=== PATIENT | male | born 1960 | race Caucasian/White ===

== ENCOUNTER 2022-07-19 19:21 | Emergency (ER) | payer OTHER, SELFPAY ==
[2022-07-19 19:30] VITALS: BP 162/97; PULSE 104; RESP 16; TEMP 36.6; O2SAT 98; BMI 26.6
[2022-07-19 19:47] VITALS: BP 132/83; PULSE 97; RESP 16; O2SAT 96
[2022-07-19 19:57] LABS: Basophils # 0.1 10^3/uL (0.0-0.1); Basophils % 0.4 %; Eosinophils # 0.1 10^3/uL (0.0-0.8); Eosinophils % 0.7 %; Hematocrit 47.5 % (42.0-52.0); Hemoglobin 15.9 g/dL (11.7-16.6); Lymphocytes # 1.4 10^3/uL (0.8-4.8); Lymphocytes % 8.1 %; Mean Corpuscular HGB Conc 33.5 g/dL (30.0-36.0); Mean Corpuscular Hemoglobin 31.2 pg (28.0-34.0); Mean Corpuscular Volume 93.1 fl (80-94); Mean Platelet Volume 9.3 fL (7.4-10.4); Monocytes # 1.8 10^3/uL (0.2-0.9); Monocytes % 10.4 %; Neutrophils # 13.99 10^3/uL (1.8-7.7); Neutrophils % 80.1 %; Nucleated Red Blood Cells % 0 %; Platelet Count 309 10^3/cmm (130-400); Red Cell Distribution Width 12.1 % (12.1-15.1); White Blood Count 17.5 10^3/uL (4.0-10.0)
--- NOTE | 2022-07-19 20:03 | CTR_ITS ---
PROCEDURE INFORMATION: Exam: CT Abdomen And Pelvis With Contrast Exam date and time: 07/19/2022 8:29 PM Age: 61 years old Clinical indication: Abdominal pain; Prior surgery; Surgery date: 6+ months; Surgery type: Hernia repair x2; Additional info: Abd pain TECHNIQUE: Imaging protocol: Computed tomography of the abdomen and pelvis with contrast. Radiation optimization: All CT scans at this facility use at least one of these dose optimization techniques: automated exposure control; mA and/or kV adjustment per patient size (includes targeted exams where dose is matched to clinical indication); or iterative reconstruction. Contrast material: OMNI 350; Contrast volume: 100 ml; Contrast route: INTRAVENOUS (IV); REPORTING DATA: Count of CT and Cardiac NM exams in prior 12 months: This patient has received 0 known CTs and 0 known cardiac nuclear medicine studies in the 12 months prior to the current study. COMPARISON: No relevant prior studies available. RADIATION DOSE METRICS: Total DLP (mGy-cm): 891 FINDINGS: Diaphragm: Small hiatal hernia. Liver: Steatosis of liver. Subcentimeter central hepatic lesion series 3, image 18. Gallbladder and bile ducts: Normal. No calcified stones. No ductal dilation. Pancreas: Edematous changes are seen adjacent to pancreatic tail. No discrete fluid collection. Spleen: Solitary punctate calcification in spleen likely granulomatous. Splenic size is normal. Adrenal glands: Normal. No mass. Kidneys and ureters: Normal. No hydronephrosis. Stomach and bowel: Unremarkable. No obstruction. No mucosal thickening. Appendix: No evidence of appendicitis. Intraperitoneal space: Unremarkable. No free air. No significant fluid collection. Vasculature: Unremarkable. No abdominal aortic aneurysm. Lymph nodes: Unremarkable. No enlarged lymph nodes. Urinary bladder: Nodule suspicious for mucosal mass seen at right lateral aspect of urinary bladder; nodule measures 2 cm. Reproductive: Unremarkable as visualized. Bones/joints: Compression of superior endplate of T12 is likely chronic. Soft tissues: Small fatty left inguinal hernia. CT/CT abdomen pelvis w con* [id number] IMPRESSION: Interstitial edematous pancreatitis. Bladder lesion suspicious for mucosal mass. Fatty liver.
--- NOTE | 2022-07-19 20:03 | W.ED.ABDPA2 ---
HPI - Abdominal Pain General: Chief Complaint: Abdominal Pain Stated Complaint: ABD Pain Time Seen by Provider: 07/19/22 19:34 Source: patient Mode of arrival: ambulatory Limitations: no limitations History of Present Illness: 61-year-old male states he had diffuse abdominal pain over the last 2 days he states that it waxes and wanes but he has a constant pain. States pain at worst is a an 8 out of 10 he currently is a pain that is 4 out of 10. States he thought it could have been constipation he took meds citrate had bowel movements and still has pain. Denies any dysuria denies any fever denies any vomiting. Associated Symptoms: Denies chills, diarrhea, dysuria, fever(s), nausea and vomiting Review of Systems Const: Denies: fever(s), chills or change in appetite Eyes: Denies: eye discomfort ENMT: Denies: throat pain or dental pain Card: Denies: chest pain Resp: Denies: dyspnea GI: Reports: abdominal pain; Denies: nausea, vomiting or diarrhea : Denies: dysuria Musc: Denies: neck pain or back pain Skin/Breast: Denies: rash Neuro: Denies: headache(s) PFSH ED PFSH: Surgical History (Updated 07/19/22 @ 20:04 by Tiera Enriquez MD) H/O hernia repair Social History (Updated 07/19/22 @ 20:04 by Tiera Enriquez MD) Substance/Drug Use: never Physical Exam Const: COMMON NORMALS: no acute distress, patient oriented x3 and healthy appearing HENMT: COMMON NORMALS: normocephalic and atraumatic HEAD & SCALP: normocephalic and atraumatic Eye: COMMON NORMALS: conjunctivae normal CONJUNCTIVA: Yes conjunctivae normal Neck/C-Spine: COMMON NORMALS: full ROM and supple Chest: COMMONS NORMALS: normal inspection of the chest and normal palpation of entire chest wall Resp: COMMON NORMALS: normal respiratory effort, No retractions, No use of accessory muscles and clear to auscultation bilaterally AUSCULTATION: clear to auscultation bilaterally Cardio: COMMON NORMALS: regular rate, regular rhythm and No murmurs present (Cardio) RATE: regular rate RHYTHM: regular rhythm GI: COMMON NORMALS: Normal to inspection, nondistended, normoactive bowel sounds present, Soft to palpation and no masses PALPATION: Yes Soft to palpation OTHER: Diffuse mild tenderness Extremity: COMMON NORMALS: normal to inspection and full ROM Neuro: COMMON NORMALS: patient oriented x3, moves all extremities and no focal motor deficits Psych: COMMON NORMALS: mental status grossly normal, Normal thought process present and cooperative THOUGHT PROCESS: Normal thought process present Skin: COMMON NORMALS: no rashes or lesions noted and no wounds GENERAL SKIN EXAM: no rashes or lesions noted Course Vital Signs: Vital signs: Vital Signs Temperature 97.9 F 07/19/22 19:30 Pulse Rate 97 07/19/22 19:47 Respiratory Rate 16 07/19/22 20:11 Blood Pressure 132/83 07/19/22 19:47 Pulse Oximetry 96 07/19/22 19:47 Oxygen Delivery Me thod Room Air 07/19/22 19:30 MDM - Abdominal Pain Medical Decision Making Patient presents here with abdominal pain CT read as a possible pancreatitis his lipase level here is normal abdominal exam is actually benign he has no tenderness really on his abdomen currently. Some of his pains been with eating could be a gastritis we will put him on a clear liquid diet start him on Protonix along with pain meds and getting follow-up with surgery he is return if worsening. Lab Data 07/19/22 19:45 07/19/22 19:45 Labs/Radiology: Radiology Impressions Abdomen/Pelvis CT 07/19/22 20:03 IMPRESSION: Interstitial edematous pancreatitis. Bladder lesion suspicious for mucosal mass. Fatty liver. Laboratory Results WBC 17.5 10^3/uL (4.0-10.0) H 07/19/22 19:45 RBC 5.10 10^6/uL (4.1-5.3) 07/19/22 19:45 Hgb 15.9 g/dL (11.7-16.6) 07/19/22 19:45 Hct 47.5 % (42.0-52.0) 07/19/22 19:45 MCV 93.1 fl (80-94) 07/19/22 19:45 MCH 31.2 pg (28.0-34.0) 07/19/22 19:45 MCHC 33.5 g/dL (30.0-36.0) 07/19/22 19:45 RDW 12.1 % (12.1-15.1) 07/19/22 19:45 Plt Count 309 10^3/cmm (130-400) 07/19/22 19:45 MPV 9.3 fL (7.4-10.4) 07/19/22 19:45 Neut % (Auto) 80.1 % 07/19/22 19:45 Lymph % (Auto) 8.1 % 07/19/22 19:45 Bracken % (Auto) 10.4 % 07/19/22 19:45 Eos % (Auto) 0.7 % 07/19/22 19:45 Baso % (Auto) 0.4 % 07/19/22 19:45 Neut # (Auto) 13.99 10^3/uL (1.8-7.7) H 07/19/22 19:45 Lymph # (Auto) 1.4 10^3/uL (0.8-4.8) 07/19/22 19:45 Bracken # (Auto) 1.8 10^3/uL (0.2-0.9) H 07/19/22 19:45 Eos # (Auto) 0.1 10^3/uL (0.0-0.8) 07/19/22 19:45 Baso # (Auto) 0.1 10^3/uL (0.0-0.1) 07/19/22 19:45 Nucleated RBC % (auto) 0 % 07/19/22 19:45 Nucleated RBCs # 0.0 /100WBC 07/19/22 19:45 Sodium 136 mmol/L (136-145) 07/19/22 19:45 Potassium 4.1 mmol/L (3.5-5.1) 07/19/22 19:45 Chloride 98 mmol/L (98-107) 07/19/22 19:45 Carbon Dioxide 27 mmol/L (22-29) 07/19/22 19:45 Anion Gap 15.1 (5-19) 07/19/22 19:45 BUN 9 mg/dL (6-20) 07/19/22 19:45 Creatinine 0.8 mg/dL (0.7-1.2) 07/19/22 19:45 GFR Calculation 98.9 mL/min (90-130) 07/19/22 19:45 Glucose 110 mg/dL (65-115) 07/19/22 19:45 Calculated Osmolality 281 mOsm/kg (285-295) L 07/19/22 19:45 Calcium 9.5 mg/dL (8.5-10.5) 07/19/22 19:45 Total Bilirubin 1.5 mg/dL (0.15-1.2) H 07/19/22 19:45 AST 18 U/L (0-40) 07/19/22 19:45 ALT 31 U/L (0-41) 07/19/22 19:45 Alkaline Phosphatase 56 U/L (40-130) 07/19/22 19:45 Total Protein 8.1 g/dL (6.6-8.7) 07/19/22 19:45 Albumin 4.8 g/dL (3.5-5.2) 07/19/22 19:45 Globulin 3.3 g/dL (1.3-4.6) 07/19/22 19:45 Lipase 31 U/L (13-60) 07/19/22 19:45 Urine Color Yellow (Yellow) 07/19/22 20:14 Urine Appearance Hazy (CLEAR) A 07/19/22 20:14 Urine pH 7 (5-7) 07/19/22 20:14 Ur Specific Battiest 1.015 (1.005-1.030) 07/19/22 20:14 Urine Protein Trace (Negative) 07/19/22 20:14 Urine Glucose (UA) Norm (Normal) 07/19/22 20:14 Urine Ketones Negative (Negative) 07/19/22 20:14 Urine Blood 3+ (Negative) H 07/19/22 20:14 Urine Nitrate Negative (Negative) 07/19/22 20:14 Urine Bilirubin Neg (Negative) 07/19/22 20:14 Urine Urobilinogen Norm mg/dL (Negative) 07/19/22 20:14 Ur Leukocyte Esterase Negative (Negative) 07/19/22 20:14 Urine RBC 25-40 /hpf (0-2) H 07/19/22 20:14 Urine WBC 0-4 /hpf (0-5) H 07/19/22 20:14 Ur Squamous Epith Cells 0-4 /hpf (0-5) H 07/19/22 20:14 Amorphous Sediment Not Reportable 07/19/22 20:14 Urine Bacteria Trace /hpf (NONE) 07/19/22 20:14 Urine Mucus 1+ /hpf 07/19/22 20:14 Discharge Plan Discharge Patient Disposition: Home Clinical Impression: Abdominal pain, Pancreatitis Prescriptions: New hydrocodone-acetaminophen 5-325 mg tablet 1 tab PO Q6H PRN (Reason: pain) Qty: 14 0RF Protonix 40 mg tablet,delayed release (DR/EC) 40 mg PO DAILY Qty: 60 0RF ondansetron 4 mg tablet,disintegrating 4 mg PO Q6H PRN (Reason: nausea and vomiting) Qty: 14 0RF Discharge Orders: Discharge ED (Routine); Ordered 07/19/22 Ordered By: Tiera Enriquez Referrals: Ruddy Alfredo DO [Physician] - 1-3 days Discharge Diet: Clear Liquid Discharge Activity: Resume usual activity Patient Instructions: Pancreatitis (ED), Abdominal Pain (ED), Opioid Safety Coding Level of Care Code ED Immigration Judge for Jeramie Hernandez
[2022-07-19 20:11] VITALS: RESP 16
[2022-07-19] MEDS: morphine 4 mg/mL SDV 1 mL IVP (20:11)
[2022-07-19 20:12] LABS: Alanine Aminotransferase 31 U/L (0-41); Albumin Level 4.8 g/dL (3.5-5.2); Alkaline Phosphatase 56 U/L (40-130); Anion Gap 15.1 (5-19); Aspartate Amino Transferase 18 U/L (0-40); Blood Urea Nitrogen 9 mg/dL (6-20); Calcium 9.5 mg/dL (8.5-10.5); Carbon Dioxide 27 mmol/L (22-29); Chloride 98 mmol/L (98-107); Globulin 3.3 g/dL (1.3-4.6); Glomerular Filtration Rate 98.9 mL/min (90-130); Glucose 110 mg/dL (65-115); Lipase 31 U/L (13-60); Osmolality Calculated 281 mOsm/kg (285-295); Potassium 4.1 mmol/L (3.5-5.1); Sodium 136 mmol/L (136-145); Total Bilirubin 1.5 mg/dL (0.15-1.2); Total Protein 8.1 g/dL (6.6-8.7)
[2022-07-19] MEDS: ondansetron 2 mg/ML SDV 2 mL 4 MG IVP (20:12)
[2022-07-19] MEDS: iohexol 350 mg/mL 500 mL Btl (per mL) IV (20:35)
[2022-07-19 20:47] LABS: Add Urine Microscopic? YES; Bilirubin Urine Neg (Negative); Blood Urine 3+ (Negative); Glucose Urine UA Norm (Normal); Ketones Urine Negative (Negative); Leukocyte Esterase Urine Negative (Negative); Nitrate Urine Negative (Negative); Protein Urine Trace (Negative); Specific Gravity, Urine 1.015 (1.005-1.030); Urine Appearance Hazy (CLEAR); Urine Color Yellow (Yellow); Urobilinogen Urine Norm (Negative); pH Urine 7 (5-7)
[2022-07-19 20:48] LABS: Add Urine Culture? Yes; Bacteria Urine TRACE /hpf; Mucus Urine 1+ /hpf; RBC Urine 25-40 /hpf (0-2); Squamous Epithelial Cell Urine 0-4 /hpf (0-5); WBC Urine 0-4 /hpf (0-5)
[2022-07-19 22:00] VITALS: BP 113/89; PULSE 115; RESP 16; O2SAT 92
[2022-07-19] MEDS: lidocaine 2% viscous 15 ML, aluminum-mag hydrox-simethicon 30 ML, sucralfate oral liq 1 GM PO (22:05)
[2022-07-19] MEDS: HYDROcodone-acetaminophen 5-325 mg Tablet 1 TAB PO ×2 (22:15)
[2022-07-19 22:50] VITALS: BP 113/89; PULSE 115; RESP 16; O2SAT 92
--- NOTE | 2022-07-20 11:31 | PC.NURSE ---
Addendum entered by Taina Álvarez 07/25/22 12:53: Patient had a follow up appointment scheduled with general surgery - patient did attend appointment. Addendum entered by Taina Álvarez 07/24/22 13:28: Patient has a follow up appointment scheduled for Sunday, July 24, 2022 at 2:[address] Alfredo at general surgery, clinic will call patient with appointment information. Original Note: Patient seen in the ED on 07/19/22. Dr. Enriquez is referring him for abd pain/pancreatitis. CM sent message to General Surgery to call patient with an appt.
--- NOTE | 2022-07-27 07:55 | DCPLANNER ---
TCM called patient due to no primary care physician - no answer at this time.
== END 2022-07-19 22:51 | disposition home or self-care (01) ==
PROVIDERS: Emergency Provider Emergency Medicine
DX: K85.90 Acute pancreatitis without necrosis or infection, unspecified (principal)
CPT/HCPCS: 74177; 80053; 81001; 83690; 85025; 87086; 96374; 96375; 99285; J2270; J2405; Q9967

== ENCOUNTER 2022-08-14 06:09 | Outpatient (CLI) | payer OTHER, SELFPAY ==
--- NOTE | 2022-08-14 06:15 | US_ITS ---
WS: [id number] RIGHT UPPER QUADRANT ULTRASOUND HISTORY: abdominal pain COMPARISON: CT 07/19/2022 Liver: 18.8 cm in length. Moderate hepatomegaly and hepatic steatosis. No mass or bile duct dilatatio n. Portal Vein: Normal hepatopetal flow with monophasic waveform. Gallbladder: Normally distended gallbladder with no stones or wall thickening. CBD: 0.3 cm Pancreas: Completely obscured. Right kidney: 11.9 cm in length. Normal size and echogenicity. No hydronephrosis or mass. Aorta and IVC: Unremarkable abdominal aorta and IVC. No ascites. US/US gall bladder [id number] IMPRESSION: 1. Normal gallbladder. 2. Moderate hepatomegaly and hepatic steatosis.
== END 2022-08-14 06:10 | disposition home or self-care (01) ==
PROVIDERS: Visit Provider Surgery
DX: R10.9 Unspecified abdominal pain (principal); K76.0 Fatty (change of) liver, not elsewhere classified; R16.0 Hepatomegaly, not elsewhere classified
CPT/HCPCS: 76705

== ENCOUNTER 2022-09-04 07:34 | Outpatient (CLI) | payer OTHER, SELFPAY ==
--- NOTE | 2022-09-04 08:00 | NM_ITS ---
WS: [id number] NUCLEAR MEDICINE HIDA SCAN CLINICAL INFORMATION: RUQ pain TECHNIQUE: Following intravenous administration of 7.6 mCi of technetium 99m mebrofenin, images of th e abdomen were obtained over the course of 60 minutes. Next, gallbladder ejection fraction was determ ined by obtaining preprandial and one-hour postprandial images of the gallbladder following oral susanna stion of Ensure. COMPARISON: Ultrasound August 14, 2022 FINDINGS: Normal hepatic uptake at 5 minutes. Gallbladder is visualized by 10 minutes. No evidence of acute cho lecystitis. Normal common bile duct and small bowel activity. Normal hepatic excretion. Gallbladder ejection fraction 63% within normal limits. No evidence of chronic cholecystitis. NM/NM hepatobiliary w phar* [id number] IMPRESSION: 1. No evidence of acute or chronic cholecystitis. 2. Gallbladder ejection fraction 63% within normal limits.
== END 2022-09-04 07:35 | disposition home or self-care (01) ==
LOC: RAD 07:34
PROVIDERS: Visit Provider Surgery
DX: K76.0 Fatty (change of) liver, not elsewhere classified (principal)
CPT/HCPCS: 78227; A9537

== ENCOUNTER 2024-07-01 15:07 | Outpatient (CLI) | payer OTHER, SELFPAY ==
--- NOTE | 2024-07-01 15:10 | CT_ITS ---
WS: [id number] CT ABDOMEN AND PELVIS WITH AND WITHOUT CONTRAST HISTORY: MALIGNANT NEOPLASM OF URINARY BLADDER TECHNIQUE: Unenhanced 5 mm axial imaging first performed through the abdomen. Post contrast imaging through the abdomen and pelvis. Oral contrast has not been provided. Sagittal and coronal reformats are submitted. All CT scans at [facility] use at least one of these dose optimization techniques: automated exposure control; mA and/or kV adjustment per patient size (includes targeted exams where dose is matched to clinical indication); or iterative reconstruction. CONTRAST: Omnipaque 350; 95 mL IV. DLP: 2253.96 mGy.cm COMPARISON: 07/19/2022 Lung bases are clear. Heart is normal size. Small hiatal hernia. RIGHT kidney: 11.5 cm in length. Normal size kidney with no obstruction. No calcification. No mass or uroepithelial lesion. There are couple very tiny too small to characterize hypodensities in the lower pole cortex. RIGHT ureter is normal caliber. Good contrast opacification throughout the ureter with no filling defect. LEFT kidney: 10.9 cm in length. No mass or calcification or obstruction. There are a few very tiny cortical hypodensities which are too small to characterize. There is a tiny filling defect in an upper pole calyx which is seen only on the axial delayed imaging. No corresponding finding on the coronal or sagittal imaging. This may be volume averaging artifact. Normal RIGHT ureter. Urinary bladder: Distended urinary bladder. Previously described mass in the RIGHT urinary bladder is not identified. No areas of abnormal enhancement. Prostate gland is enlarged encroaching into the base of the urinary bladder. There are a few small calcifications within the prostate gland. Diffuse hepatic steatosis. Normal portal vein. No intrahepatic duct dilatation. There is a very tiny low-attenuation lesion in the central liver measuring 6 mm which was also probably present on the prior study but better seen today. Normal gallbladder Normal spleen with granulomata. Normal pancreas and adrenal glands. Mild atherosclerosis aorta. No GI tract obstruction or colitis. Normal appendix. No ascites or adenopathy. Mild anterior wedging of T11. No destructive lytic or blastic process. Small fat-containing umbilical hernia. Fat-containing bilateral inguinal canals. CT/CT abdomen pelvis wo/w [id number] IMPRESSION: 1. No residual mass in the urinary bladder. 2. No bladder wall enhancement. 3. No renal obstruction or calcification. 4. There is a tiny filling defect in an upper pole calyx on the LEFT. This is only seen on the axial imaging and may be a volume imaging artifact. If patient has hematuria follow-up exam can be performed in 3 to 4 months. 5. Hepatic steatosis.
[2024-07-01] MEDS: iohexol 350 mg/mL 500 mL Btl (per mL) IV (16:04)
== END 2024-07-01 15:08 | disposition home or self-care (01) ==
PROVIDERS: Visit Provider Urology
DX: C67.9 Malignant neoplasm of bladder, unspecified (principal); K76.0 Fatty (change of) liver, not elsewhere classified; K44.9 Diaphragmatic hernia without obstruction or gangrene; N40.0 Benign prostatic hyperplasia without lower urinary tract symptoms; N42.89 Other specified disorders of prostate; K76.89 Other specified diseases of liver; D73.89 Other diseases of spleen; I70.0 Atherosclerosis of aorta; M48.54XA Collapsed vertebra, not elsewhere classified, thoracic region, initial encounter for fracture; K42.9 Umbilical hernia without obstruction or gangrene; K40.20 Bilateral inguinal hernia, without obstruction or gangrene, not specified as recurrent
CPT/HCPCS: 74178; 82565; 84520